=== PATIENT | female | born 1965 | race Caucasian/White ===

== ENCOUNTER → 2017-07-08 | Outpatient (CLI) | payer OTHER | LOC: CIMAGING 10:19 | PROVIDERS: ATTEND Family Medicine | DX: Z12.31 Encounter for screening mammogram for malignant neoplasm of breast (principal) | CPT/HCPCS: G0202 ==

== ENCOUNTER → 2017-08-08 | Outpatient (CLI) | payer OTHER | LOC: CIMAGING 13:09 | PROVIDERS: ATTEND Specialist | DX: Z12.39 Encounter for other screening for malignant neoplasm of breast (principal); N63.10 Unspecified lump in the right breast, unspecified quadrant; N63.20 Unspecified lump in the left breast, unspecified quadrant | CPT/HCPCS: G0204 ==

== ENCOUNTER → 2017-09-01 | Outpatient (CLI) | payer OTHER ==
[~2017-09-01] MED LIST: IOPAMIDOL (ISOVUE-300) 100 ML BTL ONE
== END ==
LOC: CIMAGING 10:34
PROVIDERS: ATTEND Family Medicine
DX: H92.02 Otalgia, left ear (principal); M26.603 Bilateral temporomandibular joint disorder, unspecified; M50.321 Other cervical disc degeneration at C4-C5 level
CPT/HCPCS: 70487-PO; Q9967

== ENCOUNTER → 2017-09-09 | Outpatient (CLI) | payer OTHER | LOC: FIMAGING 18:36 | PROVIDERS: ATTEND Family Medicine | DX: G91.9 Hydrocephalus, unspecified (principal); M19.90 Unspecified osteoarthritis, unspecified site ==

== ENCOUNTER → 2017-09-26 | Outpatient (CLI) | payer OTHER ==
[~2017-09-26] MED LIST changes: +GADOBUTROL 10 ML VIAL IVP ONE; -IOPAMIDOL (ISOVUE-300) 100 ML BTL ONE
== END ==
LOC: FIMAGING 15:40
PROVIDERS: ATTEND Neurological Surgery
DX: G91.8 Other hydrocephalus (principal); I67.9 Cerebrovascular disease, unspecified
CPT/HCPCS: A9585

== ENCOUNTER 2017-10-28 07:02 | Inpatient (IN) | payer OTHER ==
[2017-10-28] MEDS ORDERED: LIDOCAINE 1% 2 ML INJ ONE (08:03)
[2017-10-28] MEDS ORDERED: LIDOCAINE 1% 2 ML INJ ID PRN (08:10)
[2017-10-28] MEDS ORDERED: LR 1,000 ML IV ONE (08:10)
[2017-10-28] MEDS ORDERED: MIDAZOLAM 2 MG/2 ML VIAL IVP ONE (09:26)
--- NOTE | 2017-10-28 09:29 | PDANEPAE ---
ANE History of Present Illness HYDROCEPHALUS ANE Past Medical History - Cardiovascular History Hx Hypertension: No Hx Arrhythmias: No Hx Chest Pain: No Hx Coronary Artery / Peripheral Vascular Disease: No Hx CHF / Valvular Disease: No Hx Palpitations: No - Pulmonary History Hx COPD: No Hx Asthma/Reactive Airway Disease: No Hx Recent Upper Respiratory Infection: No Hx Oxygen in Use at Home: No Hx Sleep Apnea: No Sleep Apnea Screening Result - Last Documented: Negative Pulmonary History Comment: SEASONAL ALLERGIES - Neurologic History Hx Cerebrovascular Accident: No Hx Seizures: No Hx Dementia: No Neurologic History Comment: HYDROCEPHALUS - Endocrine History Hx Diabetes: Yes Hypothyroid: No Hyperthyroid: No Obesity: no Endocrine History Comment: DM II - Renal History Hx Renal Disorders: No - Liver History Hx Hepatic Disorders: No Hepatic History Comment: CHOLECYSTECTOMY - Neurological & Psychiatric Hx Hx Neurological and Psychiatric Disorders: No Neurological / Psychiatric History Comment: ANTIDEPRESSANT IN PAST - Cancer History Hx Cancer: No - Congenital Disorder History Hx Congenital Disorders: No - GI History GERD: no Hx Gastrointestinal Disorders: No - Other Health History Other Health History: POSS ECZEMA - Chronic Pain History Chronic Pain: Yes (HEADACHE, EARS, L ARM) - Surgical History Prior Surgeries: CHOLECYSTECTOMY. APPENDECTOMY. HYSTERECTOMY. R SHOULDER SCOPE ANE Review of Systems Review of Systems: - Exercise capacity METS (RN): 4 METS - Systems Neurological: Reports: headache ANE Patient History - Allergies Allergies/Adverse Reactions: hydrocodone [From [place]] Allergy (Verified 10/27/17 12:00) Other-Enter Comments - Home Medications Home Medications: Cyclobenzaprine [Flexeril 10 MG (*)] 5 mg PO TID PRN 10/27/17 [Last Taken ] Estradiol [Estrace Vaginal (*)] 1 clay VG HAZEL 10/27/17 [Last Taken 10/13/07] Fluticasone Nasal [Flonase Nasal [place] (RX)] 1 sprays NASAL DAILY PRN 10/27/17 [ Last Taken 10/25/17] Insulin Glargine [Lantus 100 UNITS/ML (*)] 13 units SC BID 10/27/17 [Last Taken 10/28/17] Naproxen [Naproxen] 500 mg PO DAILY PRN 10/27/17 [Last Taken Unknown] Tetrahydrozoline 0.05% [Visine (*)] 1 drop OP DAILY PRN 10/27/17 [Last Taken Unknown] metFORMIN HCL [Metformin HCl] 1,000 mg PO DAILY 10/27/17 [Last Taken 10/27/17] - NPO status NPO Since - Liquids (Date): 10/27/17 NPO Since - Liquids (Time): 21:00 NPO Since - Solids (Date): 10/27/17 NPO Since - Solids (Time): 19:00 - Smoking Hx Smoking Status: Never smoked - Family Anes Hx Family Hx Anesthesia Complications: NEG ANE Labs/Vital Signs - Labs Result Diagrams: 10/28/17 08:23 - Vital Signs Blood Pressure: 123/78 Heart Rate: 75 Respiratory Rate: 12 O2 Sat (%): 94 Height: 165.1 cm Weight: 74.843 kg ANE Physical Exam - Airway Neck exam: FROM Mallampati Score: Class 2 Mouth exam: normal dental/mouth exam - Pulmonary Pulmonary: no respiratory distress - Cardiovascular Cardiovascular: regular rate and rhythym, no murmur, rub, or gallop - ASA Status ASA Status: III ANE Anesthesia Plan Anesthesia Plan: general endotracheal anesthesia Total IV Anesthesia: No
[2017-10-28] MEDS ORDERED: CHLORHEXIDINE GLUC HIBICLENS 118 ML BTL TP ONE (09:41)
[2017-10-28] MEDS ORDERED: BUPIVACAINE 0.5% 30 ML SDV ONE (09:42)
[2017-10-28] MEDS ORDERED: BUPIVACAINE 0.25% 30 ML SDV ONE (09:42)
[2017-10-28] MEDS ORDERED: POVIDONE-IODINE 30 GM OINTTUBE TP ONE (09:42)
[2017-10-28] MEDS ORDERED: THROMBIN (BOVINE) 5,000 UNIT VIAL TP ONE ×2 (09:42→10:23)
[2017-10-28] MEDS ORDERED: BACITRACIN 50,000 UNITS/10 ML SYR IRR ONE (09:43)
[2017-10-28] MEDS ORDERED: ceFAZolin 2 GM in D5W 100 ML IV ONE (10:15)
[2017-10-28] MEDS ORDERED: REMIFENTANIL HCL 1 MG VIAL ONE ×2 (10:29→12:30)
[2017-10-28] MEDS ORDERED: fentaNYL 100 MCG/2 ML INJ ONE ×3 (10:29→14:08)
[2017-10-28] MEDS ORDERED: PROPOFOL 200 MG/20 ML VIAL ONE (10:29)
[2017-10-28] MEDS ORDERED: PROPOFOL/EMULSION 500 MG/50 ML BOTTLE IV ONE ×2 (10:29→12:30)
[2017-10-28] MEDS ORDERED: ceFAZolin 2 GM/SWFI 2 GM/20 ML SYR IVP ONE (10:30)
[2017-10-28] MEDS ORDERED: LIDOCAINE 2% 5 ML SDV ONE (10:32)
[2017-10-28] MEDS ORDERED: SCOPOLAMINE HYDROBROMIDE 1 MG/3 DAYS PATCH TD ONE (10:33)
[2017-10-28] MEDS ORDERED: ONDANSETRON 4 MG/2 ML VIAL ONE ×2 (10:34→13:34)
[2017-10-28] MEDS ORDERED: ROCURONIUM 50 MG/5 ML VIAL ONE ×2 (10:35→11:59)
--- NOTE | 2017-10-28 10:39 | PDHPUP ---
History & Physical Update H&P update statement: This history and physical update is based on an assessment of the patient which was completed after admission or registration (within 24 hours), but prior to the surgery/procedure. H&P update: H&P reviewed & patient examined, no change in patient's condition since H&P completed
[2017-10-28] MEDS ORDERED: DEXAMETHASONE 4 MG/ML VIAL ONE (10:42)
--- NOTE | 2017-10-28 10:42 | POSTOPPROG ---
Post Op Note Date of Operation: 10/28/17 Surgeon: Bjorn Arechiga Registration Clerk: Elina uGevara Anesthesiologist: Johnathon Anesthesia: GET(General Endotracheal) Pre-op Diagnosis: NPH Post-op Diagnosis: NPH Indication: symptoms from NPH Procedure: PILOT SUBMERSIBLE shunt insertion Findings: patent PILOT SUBMERSIBLE shunt Inf/Abcess present in the surg proc area at time of surgery?: No Depth: Organ Space EBL: Minimal
[2017-10-28] MEDS ORDERED: SCOPOLAMINE HYDROBROMIDE 1 MG/3 DAYS PATCH TD SCH (10:45)
[2017-10-28] MEDS ORDERED: ONDANSETRON 4 MG/2 ML VIAL IVP PRN (11:03)
[2017-10-28] MEDS ORDERED: LR 500 ML IV PRN (11:03)
[2017-10-28] MEDS ORDERED: MEPERIDINE 25 MG/ML SYR IVP PRN (11:03)
[2017-10-28] MEDS ORDERED: NALOXONE HCL 0.4 MG/ML INJ IVP PRN (11:03)
[2017-10-28] MEDS ORDERED: OXYCODONE/APAP 5/325 TAB PO PRN (11:03)
[2017-10-28] MEDS ORDERED: HYDROCODONE/APAP 5/325 TAB PO PRN ×2 (11:03→13:46)
[2017-10-28] MEDS ORDERED: ACETAMINOPHEN 500 MG TAB PO PRN (11:03)
[2017-10-28] MEDS ORDERED: HYDROmorphONE/DILAUDID 1 MG/ML INJ IVP PRN (11:03)
[2017-10-28] MEDS ORDERED: PHENYLEPHRINE HCL 100 MCG/ML SYR ONE (11:47)
[2017-10-28] MEDS ORDERED: KETOROLAC 30 MG/1 ML SDV ONE (12:31)
[2017-10-28] MEDS ORDERED: SUGAMMADEX SODIUM 200 MG/2 ML VIAL IVP ONE (12:38)
[2017-10-28] MEDS ORDERED: BACITRACIN ZINC 14.2 GM OINTTUBE TP ONE (12:46)
[2017-10-28] MEDS ORDERED: ACETAMINOPHEN 325 MG TAB PO PRN (13:16)
[2017-10-28] MEDS ORDERED: POLYETHYLENE GLYCOL 3350 17 GM PKT PO PRN (13:16)
[2017-10-28] MEDS ORDERED: MAGNESIUM HYDROXIDE 30 ML UDCUP PO PRN (13:16)
[2017-10-28] MEDS ORDERED: BISACODYL 10 MG SUPP PR PRN (13:16)
[2017-10-28] MEDS ORDERED: PROMETHAZINE HCL 25 MG/ML INJ IVP PRN (13:16)
[2017-10-28] MEDS ORDERED: LACTULOSE 20 GM/30 ML UDCUP PO PRN (13:16)
[2017-10-28] MEDS ORDERED: TETRAHYDROZOLINE 0.05% 15 ML OPHT.BTL OP PRN (13:27)
[2017-10-28] MEDS ORDERED: NON-FORMULARY NEW DRUG (Naproxen [Naproxen] 500 MG) PO PRN (13:27)
[2017-10-28] MEDS ORDERED: CYCLOBENZAPRINE 10 MG TAB PO PRN (13:27)
[2017-10-28] MEDS ORDERED: NS W/ 20 KCl/L 1,000 ML IV SCH (13:30)
[2017-10-28] MEDS: fentaNYL 100 MCG/2 ML INJ IVP PRN ×3 (13:35→14:10)
--- NOTE | 2017-10-28 13:38 | NEUSURGPN ---
Date of Surgery: 10/28/17 Post Op Day: 0 Assessment/Plan: 52F w/ NPH now s/p FISHERIES DIVER shunt placement admit obs overnight CTH and Shunt series in AM home tomorrow if doing well DW Dr. Moreno Subjective: groggy, post anesthesia Objective: NAD Alert PEARLA cnii-xii grossly intact, no facial droop MAEx4 5/5=, no pronator drift SILT Incision CDI - Physician Discussed Patient with Dr.: Moreno Patient Seen by Dr.: Moreno Neurosurgery Physical Exam - Vitals, I&O, Labs I and O 10/27/17 10/28/17 10/29/17 05:59 05:59 05:59 Weight 74.843 kg 74.843 kg Vital Signs Temp Pulse Resp BP Pulse Ox 36.4 C 75 12 123/78 H 94 10/28/17 09:30 10/28/17 10:36 10/28/17 10:36 10/28/17 10:36 10/28/17 10:36 Laboratory Results 10/28/17 08:23 ICD10 Worksheet Patient Problems: Problems Problem Status Onset NPH (normal pressure hydrocephalus) Acute - ICD10 Problem Qualifiers (1) NPH (normal pressure hydrocephalus)
[2017-10-28] MEDS ORDERED: NAPROXEN SODIUM 220 MG TAB PO PRN (15:23)
[2017-10-28] MEDS ORDERED: traMADol 50 MG TAB PO PRN (17:27)
[2017-10-28] MEDS: OXYCODONE/APAP 5/325 TAB PO PRN (20:13)
[2017-10-28] MEDS ORDERED: INSULIN GLARGINE SC SCH (21:00)
[2017-10-28] MEDS: INSULIN GLARGINE 100 UNITS/ML UNIT SC SCH ×2 (21:14→22:18)
[2017-10-28] MEDS: SENNOSIDES/DOCUSATE SODIUM TAB PO SCH (21:17)
[2017-10-29] MEDS: OXYCODONE/APAP 5/325 TAB PO PRN ×2 (06:34→12:39)
--- NOTE | 2017-10-29 07:00 | NEUSURGPN ---
Date of Surgery: 10/28/17 Post Op Day: 1 Assessment/Plan: 52 yo female s/p right HEAD OF CYTOGENETICS shunt for NPH - neuro stable - pain controlled on orals - postop head CT and shunt series x-rays pending - dispo: likely home later this afternoon if continues to progress well Subjective: Having pain at incisions, controlled on percocet. No nausea/vomiting. Objective: Awake. Alert. PERRL. EOMI Muscle strength full at 5/5 Sensation intact Incisions c/d/i - Physician Discussed Patient with DrShaheed: Tiffanie Neurosurgery Physical Exam - Vitals, I&O, Labs I and O 10/28/17 10/29/17 10/30/17 05:59 05:59 05:59 Intake Total 2340 Output Total 615 Balance 1725 Weight 74.843 kg 74.843 kg Intake: Oral (ml) 690 IV Intake (ml) 1650 Output: Urine (ml) 600 Toilet 600 Estimated Blood Loss (ml) 15 Emesis (ml) 0 Other: Intake Quantity Yes Sufficient Number of Voids Toilet 1 Vital Signs Temp Pulse Resp BP Pulse Ox 36.9 C 74 16 118/69 93 10/29/17 06:00 10/29/17 06:00 10/29/17 06:00 10/29/17 06:00 10/29/17 06:00 Laboratory Results 10/28/17 08:23 ICD10 Worksheet Patient Problems: Problems Problem Status Onset NPH (normal pressure hydrocephalus) Acute
[2017-10-29] MEDS ORDERED: ENOXAPARIN 40 MG/0.4 ML SYR SC SCH (09:00)
[2017-10-29] MEDS ORDERED: metFORMIN HCL 500 MG TAB PO SCH (09:00)
[2017-10-29] MEDS: INSULIN GLARGINE 100 UNITS/ML UNIT SC SCH ×2 (09:06)
--- NOTE | 2017-10-29 11:57 | GOP ---
[f rep st] OPERATIVE REPORT DATE OF OPERATION: 10/28/2017 SURGEON: Elina Becerra MD ANESTHESIOLOGIST: Dr. Gary Snyder. PREOPERATIVE DIAGNOSIS: Hydrocephalus. POSTOPERATIVE DIAGNOSIS: Hydrocephalus. PROCEDURE PERFORMED: Abdominal portion for ventriculoperitoneal shunt placement. FINDINGS: No intraabdominal adhesions. SPECIMENS: None. ESTIMATED BLOOD LOSS: 2 cc. INDICATIONS: The patient is a 52-year-old woman, who is undergoing GYM TEACHER shunt placement for hydrocephalus. Dr. Moreno asked me to be present to perform the abdominal portion of the shunt placement. DESCRIPTION OF PROCEDURE: The patient was already in the room, intubated, sedated with the access being performed in the ventricle. When I arrived, her abdomen had already been prepped and draped in the usual sterile fashion. Dr. Moreno was then able to tunnel the shunt down to the abdomen. I infiltrated an area by her umbilicus. I elevated it. I inserted the Veress needle. It passed the hanging drop test. Her abdomen insufflated easily to a pressure of 15 mmHg. I placed a 5 mm trocar with the camera at this site. There were no intrabdominal adhesions. I then was able to grasp the catheter and using a mosquito clamp enter the abdominal cavity and pull this through. I placed another 5 mm trocar in the right lower quadrant to assist with manipulation of the catheter. We examined the catheter and did not see dripping of csf fluid. We reduced the abdominal pressure and still did not see fluid coming out of the tubing. We then removed the tubing and flushed it, and could see vigorous flow. I threaded the catheter back into the abdomen and could see small drops. After we were satisfied with the placement of the catheter I removed the ports under direct vision. The abdomen was allowed to desufflate. I closed all 3 sites with 4-0 Monocryl. Dermabond applied. She was awakened in the operating room, extubated, transferred to PACU in stable condition. /[id number]/MODL MTDD
[2017-10-29 12:04] VITALS: BP 98/62; PULSE 76; RESP 15; TEMP 98.4; O2SAT 94
[2017-10-29] MEDS: SENNOSIDES/DOCUSATE SODIUM TAB PO SCH (12:41)
--- NOTE | 2017-10-29 16:49 | ASMTCMCOM ---
CM Note CM Note Notes: Pt medically stable for d/c, therapies clear pt for home. No CM d/c needs identified. Date Signed: 10/29/2017 04:48 PM Electronically Signed By:HEATHER García
--- NOTE | 2017-10-30 04:21 | GOP ---
[f rep st] OPERATIVE REPORT DATE OF OPERATION: 10/28/2017 SURGEON: Lee Moreno MD NEUROSURGEON: Lee Moreno MD STUDIO CAMERA OPERATOR: Bjorn Arechiga PA-C ANESTHESIA: GETA. 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 PROCEDURE PERFORMED: Right parieto-occipital ventriculoperitoneal shunt placement with Stealth navig ation, and General Surgery assistance for laparoscopic placement of the distal catheter. FINDINGS: Distal catheter placed under direct laparoscopic visualization with definite distal flow i nto the peritoneal cavity at the end of the case. SPECIMENS: Removed none. ESTIMATED BLOOD LOSS: 10 cc. INDICATIONS: The patient is a very pleasant 52-year-old female with progressive symptoms of cognitiv e slowing, who has enlarged ventricles on her MRI scan. She has triventricular hydrocephalus. She d oes not have obvious aqueductal stenosis, but she does have a normal-sized fourth ventricle so aquedu ctal stenosis is the most likely diagnosis. Other possibilities include normal-pressure hydrocephalu s. Given the fact that the patient has radiographic changes, symptoms that are consistent with hydro cephalus, and had a neurology evaluation in which they agreed she has symptomatic hydrocephalus, we o ffered her CSF diversion. Risks, benefits, and alternatives were discussed. She signed informed con sent prior to the procedure. DESCRIPTION OF PROCEDURE: The patient was brought to the operating room and a sign-in was performed. She was given 2 g of IV Ancef to prevent postoperative infection. She was smoothly induced under g eneral anesthesia and intubated without difficulty. Appropriate IV access was obtained. SCDs were p laced to prevent postoperative DVT. She was placed supine on normal operating table, and her head wa s placed on a soft foam doughnut and turned to the left so that her right side was facing upward. [employer] system was used for localization of our entry point. We registered the [employer] m and checked it for accuracy, and picked the site of our planned bur hole which was approximately 3 fingerbreadths above the pinna of her ear and behind it. We combed her hair away and shaved a small horseshoe amount of hair as our planned incision. We traced this out. We cleansed her scalp with ch lorhexidine shampoo and rubbing alcohol. Once this dried, we retraced the incision and used ChloraPr ep to sterilize the scalp, her neck, and the thorax and abdomen. A sterile field was created with bl ue towels, an Ioban, and a sterile surgical drape. Time-out was performed in which all members of Wall rgery, Anesthesia and Nursing went over the necessary checklist items and agreed to proceed as one. 10 cc of 0.25% Marcaine with 1:200,000 parts of epinephrine was injected along the planned scalp inci kathy. A #10 scalpel was used to incise the skin and dermis down to the skull itself. Scalp was flap ped and retracted downward, and secured in place with a 2-0 Vicryl suture. We used a bi tester dril l bit to make our bur hole and achieved epidural hemostasis. We incised the dura in a cruciate fashi on, used both bipolar electrocautery to coagulate back the dural leaflets. We also used bipolar elec trocautery to cauterize the bert. We sharply incised the bert. We planned our entry point and our tar get, and then used the PurePredictive machine to successfully place our proximal catheter without difficu lty. Once we entered the ventricle, we saw flow of CSF and then we soft passed our catheter to the 1 0 cm lyric. The catheter was then secured to the drapes. The patient's intracranial pressure appeare d to be relatively normal. Dr. Becerra then came in and obtained laparoscopic abdominal access. Please refer to her operative rep ort for the details of this particular procedure. We then took a tunneler and tunneled from the cran ial incision to the abdominal entry point which was in the right upper quadrant. The distal catheter was passed through the tunneler without difficulty. Dr. Becerra was able to be easily place the chanda ter into the peritoneal cavity without difficulty. We connected the proximal catheter to the shunt v alve, which had been preset at 1.5, and then we connected to the distal catheter and secured both end s with silk suture. We visualized directly the drainage of spinal fluid into the peritoneal cavity a nd then proceeded with our closure. The incisions were irrigated with copious amounts of antibiotic solution. The proximal catheter was hooked up to its elbow connector, which was secured to the skull with 4 mm titanium screws. The bur hole was packed with thrombin-soaked Gelfoam. The galea was closed with interrupted and inverted 3-0 pop-off Vicryl sutures, and the cranial incision was closed with a 3-0 running nylon stitch. The ab dominal puncture wounds were closed by Dr. Becerra, who will provide details for this in her dictation. The abdominal wounds were then closed with Dermabond. The cranial wound was sterilely dressed with bacitracin ointment. The drapes were removed. The patient's hair was cleansed sterilely. The shira ent was reversed from anesthesia and extubated without difficulty. I was there for the entire proced ure. All counts were correct. There were no immediate surgical or anesthetic complications. The marcelo powell was taken to recovery area where she was found to be in stable neurologic condition. I updated her mother who was grateful for the care she received. Orders were given for her to spend the night in the hospital as an op status, with plans for a CT of the head and an x-ray shunt series the following day. The patient was in stable condition at her baseline prior to my departure from [facility]. CO-SURGEON: Elina Becerra MD. COMPLICATIONS: None. IMPLANTS: The Strata II programmable shunt valve, and proximal and distal catheter were implanted [facility]. The shunt valve was set at 1.5. /[id number]/MODL
[2017-10-31] MEDS ORDERED: PATCH REMOVAL 1 EA PATCH TD SCH (10:38)
[2017-11-02] MEDS ORDERED: ESTRADIOL 42.5 GM CRTUBE VG SCH (13:27)
== END 2017-10-29 16:10 | disposition home or self-care (01) | DRG 33 ==
LOC: F3N 07:02 → OBSVTOIN 13:45 → F3N 14:34
PROVIDERS: ADMIT Neurological Surgery; ATTEND Neurological Surgery
PROC: 0WJG4ZZ Inspection of Peritoneal Cavity, Percutaneous Endoscopic Approach (ICD-10-PCS; 2017-10-28)
PROC: 4A10X4G Monitoring of Central Nervous Electrical Activity, Intraoperative, External Approach (ICD-10-PCS; principal; 2017-10-28 10:30)
PROC: 00163J6 Bypass Cerebral Ventricle to Peritoneal Cavity with Synthetic Substitute, Percutaneous Approach (ICD-10-PCS; principal; 2017-10-28 10:30)
DX: G91.8 Other hydrocephalus (principal); E11.9 Type 2 diabetes mellitus without complications; F32.9 Major depressive disorder, single episode, unspecified; E78.5 Hyperlipidemia, unspecified; H92.03 Otalgia, bilateral; R06.83 Snoring; Z79.4 Long term (current) use of insulin
CPT/HCPCS: 92523-GN; 97161-GP; 97165-GO; C1713; J0171; J0690; J1100; J1650; J1815; J1885; J2250; J2370; J2405; J2704; J3010

== ENCOUNTER → 2017-12-25 | Outpatient (CLI) | payer OTHER | LOC: CIMAGING 12:55 | PROVIDERS: ATTEND Physician Assistant Surgical | DX: Z09 Encounter for follow-up examination after completed treatment for conditions other than malignant neoplasm (principal); R93.0 Abnormal findings on diagnostic imaging of skull and head, not elsewhere classified; Z98.2 Presence of cerebrospinal fluid drainage device | CPT/HCPCS: 70450-PO ==

== ENCOUNTER → 2017-12-29 | Outpatient (CLI) | payer OTHER | LOC: CIMAGING 13:22 | PROVIDERS: ATTEND Neurological Surgery | DX: Z98.2 Presence of cerebrospinal fluid drainage device (principal) | CPT/HCPCS: 74019-PO ==

== ENCOUNTER → 2018-08-28 | Outpatient (CLI) | payer OTHER | LOC: CIMAGING 10:45 | PROVIDERS: ATTEND Neurological Surgery | DX: Z86.79 Personal history of other diseases of the circulatory system (principal); Z98.2 Presence of cerebrospinal fluid drainage device | CPT/HCPCS: 70450-PO ==